=== PATIENT | female | born 1970 | race Caucasian/White ===

== ENCOUNTER 2022-09-22 18:38 | Emergency (ER) | payer OTHER, SELFPAY ==
[2022-09-22 18:56] VITALS: BP 136/78; PULSE 72; RESP 20; TEMP 37.5; O2SAT 99
--- NOTE | 2022-09-22 18:57 | ED.LOWEXIN ---
HPI - Extremity Injury (Lower) General Chief Complaint: Extremity Injury, Lower Stated Complaint: Right Knee Pain Time Seen by Provider: 09/22/22 18:58 Source: patient Mode of arrival: wheelchair Limitations: no limitations History of Present Illness HPI Narrative: [age] year old female presented for complaint of right knee pain. Patient reports she twisted the right knee 2 weeks ago, 5 days ago, and again today. She did see doctor 3 days ago for the original injury, was given a steroid and exercises but has not started the steroid. 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 Today while walking down stairs she stepped on a sharp object and was unable to hold herself up with the right leg, causing her to fall and land on buttocks. Denies hitting head or LOC. Since then she has been unable to bear full weight on the right knee, and reports pain with flexion of the knee. Denies swelling or redness. Applying ice. Denies numbness, tingling or weakness of the extremity. Related Data Home Medications Medication Instructions Recorded Confirmed No Home Medications 09/22/22 09/22/22 Allergies Allergy/AdvReac Type Severity Reaction Status Date / Time No Known Allergies Allergy Verified 09/22/22 18:52 Review of Systems Review of Systems: CONSTITUTIONAL: Denies body aches, fever, chills EYES: Denies visual changes ENT: Denies rhinorrhea, congestion CARDIOVASCULAR: Denies chest pain, palpitations, or edema. RESPIRATORY: Denies cough or dyspnea. GASTROINTESTINAL: Denies abdominal pain, nausea, vomiting, or diarrhea. SKIN: Denies rash, itching, or wounds. MUSCULOSKELETAL: per HPI NEUROLOGIC: Denies headache, numbness, tingling, or weakness. PSYCH: Denies depression or anxiety. All systems reviewed & are unremarkable except as noted in HPI and below [facility] Past Medical History Medical History (Updated 09/23/22 @ 09:23 by Erika Larios, STEPHANIE) No pertinent past medical history Comments At time of signature, I have reviewed and agree with nursing past medical, surgical, social and family history unless otherwise noted. Please see nursing chart for further information. There is no relevant family history pertinent to the presenting complaint Exam Narrative: GENERAL: Well-appearing CHEST: Speaks in full sentences. No respiratory distress. HEART: Regular rate and rhythm. Normal and equal peripheral pulses. EXTREMITIES: Right medial knee pain illicited with external rotation of foot, able to tolerate right knee full extension, endorses pain with flexion. No swelling, erythema, or ecchymosis, No point tenderness. RLE has normal strength and sensation, No open wounds or obvious deformity; alignment normal, pulse palpable and equal bilaterally, skin warm, dry, pink. Capillary refill less than 3 seconds. Utilizing w/c during exam. SKIN: Warm, dry, no rash. NEURO: Alert and oriented x3. PSYCH: Normal mood and affect Course Course Emergency Course: Patient is aware of diagnosis, understands and agrees to treatment plan. Anticipatory guidance given. Patient agrees to follow-up as directed and is aware of reasons to seek care at the emergency department. Portions of this record may have been created with voice recognition software Level of Care: Express Care Visit Vital Signs Vital signs: Vital Signs Temperature 99.5 F 09/22/22 18:56 Pulse Rate 72 09/22/22 18:56 Respiratory Rate 20 09/22/22 18:56 Blood Pressure 136/78 09/22/22 18:56 Pulse Oximetry 99 09/22/22 18:56 Oxygen Delivery Room Air 09/22/22 18:56 Temperature 99.5 F 09/22/22 18:56 Pulse Rate 72 09/22/22 18:56 Respiratory Rate 20 09/22/22 18:56 Blood Pressure 136/78 09/22/22 18:56 Pulse Oximetry 99 09/22/22 18:56 Oxygen Delivery Room Air 09/22/22 18:56 Reviewed Procedures Orthopedic Splinting/Casting right knee: Lower Ex
== END 2022-09-22 19:35 | disposition home or self-care (01) ==
PROVIDERS: Emergency Provider Nurse Practitioner Family
DX: M25.561 Pain in right knee (principal); X50.0XXA Overexertion from strenuous movement or load, initial encounter; W10.8XXA Fall (on) (from) other stairs and steps, initial encounter
CPT/HCPCS: 99213; G0463; L1830

== ENCOUNTER 2023-04-06 08:48 | Emergency (ER) | payer OTHER, SELFPAY ==
[2023-04-06 09:02] VITALS: BP 149/75; PULSE 79; RESP 20; TEMP 37.1; O2SAT 100
--- NOTE | 2023-04-06 09:15 | ED.DENTAL ---
HPI - Dental/Oral General Chief complaint: Dental/Oral Stated complaint: Dental Pain Time Seen by Provider: 04/06/23 09:10 Source: patient Mode of arrival: ambulatory Limitations: no limitations History of Present Illness HPI Narrative: Letha is a 52-year-old female patient who presents to the clinic today with complaints of dental pain. She reports that she had a root canal done on of this week. States that she had increase in swelling and discomfort night that had gradually gotten worse on Saturday. This morning she woke up and she has swelling to her lymph nodes and right lower jaw. She has been taking ibuprofen as needed for the pain. She has not contacted her dentist regarding this issue Related Data Allergies Allergy/AdvReac Type Severity Reaction Status Date / Time No Known Allergies Allergy Verified 04/06/23 09:01 Review of Systems Review of Systems: Pertinent positives per HPI. Patient denies any fever, chills, rash, headache, visual changes, dizziness, cough, runny nose, sore throat, shortness of breath, chest pain, palpitations, nausea, vomiting, diarrhea, constipation, abdominal pain, or any urinary issues. [facility] Past Medical History Medical History No pertinent past medical history Comments At the time of my signature, I reviewed and agree with the nursing past medical, surgical, social, and family history. There is no relevant family history pertinent to the patient complaint. Exam Narrative: General: Well-developed, well nourished, in no apparent distress Head: Normocephalic, atraumatic Eyes: Pupils equally round and reactive to light bilaterally, EOM intact, sclera and conjunctive clear, no discharge, lids normal Ears: TMs intact and clear, ear canals clear, no drainage, grossly hearing normal. Nose: Nares patent, no discharge, no inflammation, no sinus tenderness. Mouth: Oropharynx without lesions or masses, good dentition, MMM.-capped root canal to the right lower premolar with tenderness and swelling noted to the jaw just below the tooth and gum Neck: Supple, trachea midline, no enlargement of anterior or posterior cervical nodes, no thyroid masses or goiter palpable. Cardio: Regular rate and rhythm, s1 and s2 normal, no murmur appreciated. Resp: Clear to auscultation bilaterally anteriorly and posteriorly, no rhonchi, rales, wheezing or rubs Course Course Emergency Course: Portions of this record may have been created with voice recognition software. Level of Care: Express Care Visit Vital Signs Vital signs: Vital Signs Temperature 37.1 C 04/06/23 09:02 Pulse Rate 79 04/06/23 09:02 Respiratory Rate 20 04/06/23 09:02 Blood Pressure 149/75 H 04/06/23 09:02 Pulse Oximetry 100 04/06/23 09:02 Oxygen Delivery Room Air 04/06/23 09:02 Temperature 37.1 C 04/06/23 09:02 Pulse Rate 79 04/06/23 09:02 Respiratory Rate 20 04/06/23 09:02 Blood Pressure 149/75 H 04/06/23 09:02 Pulse Oximetry 100 04/06/23 09:02 Oxygen Delivery Room Air 04/06/23 09:02 Vital signs reviewed MDM - Dental/Oral MDM Narrative Medical decision making narrative: At the time of visit patient is resting comfortably on the exam table. I suspect patient may have a dental infection. Will send in prescription for amoxicillin and have her contact her dentist on Saturday for a follow-up appointment. Supportive measures were discussed with the patient she voiced understanding discharge instructions agrees to treatment plan. Differential Diagnosis Differential diagnosis: Likely gingival abscess, dental caries, toothache, dental abscess, fracture of tooth and aphthous ulcer Discharge Plan Discharge Clinical Impression: Toothache, Dental infection Patient Disposition: Home, Self-Care Condition: Stable Instructions: Antibiotic Form, Toothache (ED) Additional Instructions: Take Tylenol/ibupr
== END 2023-04-06 09:26 | disposition home or self-care (01) ==
PROVIDERS: Emergency Provider Nurse Practitioner Family
DX: K04.7 Periapical abscess without sinus (principal)
CPT/HCPCS: 99213; G0463

== ENCOUNTER 2023-08-14 09:12 | Emergency (ER) | payer OTHER, SELFPAY ==
--- NOTE | 2023-08-14 09:16 | ED.URI ---
HPI - URI/Sore Throat General Chief Complaint: Upper Respiratory Infection Stated Complaint: Cough/Fever Time Seen by Provider: 08/14/23 09:48 Source: patient and RN notes reviewed Mode of arrival: ambulatory Limitations: no limitations History of Present Illness HPI Narrative: 53-year-old female presents concern for one-week history of sinus congestion, sinus pressure, cough. Reports she has been taking laje-ofy-srhzubf medications without relief. She reports she developed fever at the beginning that has resolved. MD elicited complaint: cough and nasal congestion Related Data Allergies Allergy/AdvReac Type Severity Reaction Status Date / Time No Known Allergies Allergy Verified 08/14/23 09:20 Review of Systems Review of Systems: CONSTITUTIONAL: Reports malaise. Denies chills, sweats, or fever. EYES: Denies visual changes, redness, or discharge. ENT: Reports rhinorrhea, congestion, sinus pain CARDIOVASCULAR: Denies chest pain, palpitations, or edema. RESPIRATORY: Reports cough. Denies dyspnea. GASTROINTESTINAL: Denies abdominal pain, nausea, vomiting, diarrhea SKIN: Denies rash or itching. MUSCULOSKELETAL: Reports myalgia. NEUROLOGIC: Denies headache. All systems reviewed & are unremarkable except as noted in HPI and below PMFSH Past Medical History Medical History No pertinent past medical history Comments At time of signature, agree with nursing past medical, surgical, social and family history. There is no relevant family history pertinent to the presenting complaint Exam Narrative: GENERAL: Nontoxic-appearing, well-nourished, and in no acute distress. HEAD: Normocephalic EYES: PERRLA, conjunctivae clear ENT: Nares clear, turbinates edematous and erythematous. Mucous membranes moist. TM pearly concepcion with dull light reflex bilaterally; no tragal tenderness. Oropharynx not erythematous without lesions. Tonsils not enlarged and without exudate, no drooling, no hoarseness, no trismus, uvula midline. NECK: Supple. No lymphadenopathy CHEST: Scattered wheeze, otherwise clear to auscultation, breath sounds equal. No rhonchi, rales, or stridor. No respiratory distress, speaks in full sentences. HEART: Regular rate and rhythm. No murmur heard. SKIN: Warm, dry, no rash. NEURO: Alert and oriented x3. PSYCH: Normal mood and affect Course Course Emergency Course: Patient is aware of diagnosis, understands and agrees to treatment plan. Anticipatory guidance given. Patient agrees to follow-up as directed and is aware of reasons to seek care at the emergency department. Portions of this record may have been created with voice recognition software Level of Care: Express Care Visit Vital Signs Vital signs: Reviewed. MDM - URI/Sore Throat MDM Narrative Medical decision making narrative: Differential diagnosis considered: Cintron virus, strep pharyngitis, allergic rhinitis, upper respiratory tract infection, sinusitis, rhinosinusitis, nasopharyngitis. viral pharyngitis, otitis media, otitis externa, pneumonia, bronchitis, viral cough syndrome, viral syndrome, and influenza. Exam findings show no acute concerns or changes; patient is non-toxic appearing and is in no distress. Patient is appropriate for outpatient treatment and follow-up. Lab Data Attestation: I reviewed the patient's lab results. Critical Care Time Critical Care Time Critical Care Time: No Discharge Plan Discharge Clinical Impression: Sinobronchitis Patient Disposition: Home, Self-Care Condition: Stable Instructions: Antibiotic Form, How to Use a Metered-Dose Inhaler (ED) Additional Instructions: Take medications as directed Nonprescription pain medications, such as acetaminophen (eg, Tylenol) or ibuprofen (eg, Motrin, Advil), are recommended for pain. Flushing the nose and sinuses with a saline solution several times per day has been proven to decrease pain associate
[2023-08-14 09:28] VITALS: BP 121/80; PULSE 90; RESP 16; TEMP 36.7; O2SAT 100
== END 2023-08-14 10:05 | disposition home or self-care (01) ==
PROVIDERS: Emergency Provider Nurse Practitioner
DX: J32.9 Chronic sinusitis, unspecified (principal); J40 Bronchitis, not specified as acute or chronic
CPT/HCPCS: 87081; 87880; 99213; G0463

== ENCOUNTER 2024-01-27 15:49 | Emergency (ER) | payer OTHER, SELFPAY ==
--- NOTE | 2024-01-27 16:25 | ED.EAR ---
HPI - Ear Problem General Chief complaint: Ear Stated complaint: stuffy ears , ears ringing Time Seen by Provider: 01/27/24 16:35 Source: patient and RN notes reviewed Mode of arrival: ambulatory Limitations: no limitations History of Present Illness HPI Narrative: 53-year-old female presents with concern for stuffy ears and ringing ears for 1 day. She denies drainage from the ears, fever, nasal congestion, rhinorrhea, sore throat. MD Complaint: ear pain Related Data Allergies Allergy/AdvReac Type Severity Reaction Status Date / Time No Known Allergies Allergy Verified 01/27/24 16:17 Review of Systems Review of Systems: CONSTITUTIONAL: Denies malaise, chills, sweats, or fever. EYES: Denies visual changes, redness, or discharge. ENT: Denies rhinorrhea, congestion, sinus pain, and sore throat. Reports bilateral ear fullness and ringing CARDIOVASCULAR: Denies chest pain, palpitations, or edema. RESPIRATORY: Denies cough. Denies dyspnea. GASTROINTESTINAL: Denies abdominal pain, nausea, vomiting, diarrhea SKIN: Denies rash or itching. MUSCULOSKELETAL: Denies myalgia. NEUROLOGIC: Denies headache. All systems reviewed & are unremarkable except as noted in HPI and below PMFSH Past Medical History Medical History No pertinent past medical history Comments At time of signature, agree with nursing past medical, surgical, social and family history. There is no relevant family history pertinent to the presenting complaint Exam Narrative: GENERAL: Well-appearing, well-nourished, and in no acute distress. HEAD: Normocephalic EYES: PERRLA, conjunctivae clear ENT: Nares clear. Mucous membranes moist. TM pearly concepcion with dull light reflex bilaterally; no tragal tenderness. Oropharynx not erythematous without lesions. Tonsils not enlarged and without exudate, no drooling, no hoarseness, no trismus, uvula midline. NECK: Supple. No lymphadenopathy CHEST: Clear to auscultation, breath sounds equal. No wheezing, rhonchi, rales, or stridor. No respiratory distress, speaks in full sentences. HEART: Regular rate and rhythm. No murmur heard. SKIN: Warm, dry, no rash. NEURO: Alert and oriented x3. PSYCH: Normal mood and affect Course Course Emergency Course: Patient is aware of diagnosis, understands and agrees to treatment plan. Anticipatory guidance given. Patient agrees to follow-up as directed and is aware of reasons to seek care at the emergency department. Portions of this record may have been created with voice recognition software Level of Care: [facility] Visit Vital Signs Vital signs: Reviewed. Medical Decision Making MDM Narrative Medical decision making narrative: I evaluated this in the [facility]. History is obtained from patient who is an independent historian and physical exam was performed.? Available medical records were reviewed. ? Exam findings and relevant testing show no acute concerns or changes; patient is non-toxic appearing and is in no distress. Differential diagnosis considered: Cintron virus, strep pharyngitis, allergic rhinitis, upper respiratory tract infection, sinusitis, rhinosinusitis, nasopharyngitis. viral pharyngitis, otitis media, otitis externa, otitis effusion, cerumen impaction, foreign body. Exam findings show no acute concerns or changes; patient is non-toxic appearing and is in no distress. Patient is appropriate for outpatient treatment and follow-up. ? Differential diagnosis and treatment plan were discussed with the patient. Patient agrees with discussion and after shared medical decision making agrees with plan of care. All questions were answered to the patient's satisfaction. Patient is appropriate for outpatient treatment and follow-up. Critical Care Time Critical Care Time Critical Care Time: No Discharge Plan Discharge Clinical Impression: Fluid level behind tympanic membrane of both ears Laurence
[2024-01-27 16:30] VITALS: BP 119/60; PULSE 76; RESP 18; TEMP 36.6; O2SAT 100
== END 2024-01-27 16:45 | disposition home or self-care (01) ==
PROVIDERS: Emergency Provider Nurse Practitioner; PCP Family Medicine
DX: H73.893 Other specified disorders of tympanic membrane, bilateral (principal)
CPT/HCPCS: 99213; G0463

== ENCOUNTER 2024-05-14 15:50 | Outpatient (CLI) | payer OTHER, SELFPAY ==
--- NOTE | ~2024-05-14 | MR_ITS ---
EXAMINATION: MR brain IAC wo/w con DATE: 05/14/2024 16:44 INDICATION: Bilateral tinnitus TECHNIQUE: Magnetic resonance imaging (MRI) of the brain and brainstem was performed without and with 18 mL Multihance intravenous contrast. Sequences included sagittal and axial T1-weighted FSE, axial diffusion-weighted FS EPI, axial T2*-weighted GRE, axial T2-weighted FLAIR Propeller, axial T2-weight ed Propeller, small oatob-aw-bnzm coronal FIESTA, small ajntb-jf-kcwz coronal T1-weighted FSE, and sm all ncvap-bn-avzy axial T1-weighted SPGR. Postcontrast sequences included axial T1-weighted FSE, smal l gzxol-nd-hfmx coronal T1-weighted FSE, and small rrmvm-xo-skkq axial T1-weighted SPGR. Apparent dif fusion coefficient (ADC) maps were created. COMPARISON: None. FINDINGS: There are no areas of restricted diffusion to suggest acute infarction. No intracranial hemorrhage or abnormal intracranial mass lesion. There are no intraparenchymal signal abnormalities seen on the ot her pulse sequences. The ventricles are symmetric and normal in size. There are no abnormal extra-axi al fluid collections. Normal seventh/eighth cranial nerve complexes. No cerebellopontine angles mass es. No evidence of mastoid or middle ear fluid. Flow voids are seen in the cerebral arteries on the T2-weighted sequences consistent with their expected patency. There is mild mucosal thickening the bi lateral ethmoid sinuses. Visualized orbits and soft tissues are unremarkable. There are no areas of a bnormal enhancement on the post contrast images. IMPRESSION: 1. Normal MRI of the brain and internal auditory canals. Reviewed, dictated and finalized at location A.
== END 2024-05-14 15:51 | disposition home or self-care (01) ==
LOC: MICIMG 15:52
DX: H93.13 Tinnitus, bilateral (principal)
CPT/HCPCS: 70553; A9577

== ENCOUNTER 2024-06-10 06:33 | Day surgery (SDC) | payer OTHER, SELFPAY ==
[2024-04-29 10:28] VITALS: BMI 37.7
[2024-05-21 14:19] VITALS: BMI 35.9
--- NOTE | 2024-06-10 06:51 | P.PNAN_ITS ---
Anes - Initial Pre Proc Eval Procedure: Operation Date: 06/10/24 08:45 Proposed Procedures p Screening Colonoscopy - Axel Baker MD Date/Time: 06/10/24 06:51 Surgeon: Axel Baker MD Pre Op Diagnosis: Neoplasm Screening Patient Data Age: 54 Gender: F Height: 1.57 m Weight: 89 kg Allergies Allergy/AdvReac Type Severity Reaction Status Date / Time No Known Allergies Allergy Verified 06/10/24 07:57 Home Medications Medication Instructions Recorded Confirmed Type Claritin 1 tab-cap PO DAILY 05/21/24 06/10/24 History metformin 500 mg tablet 500 mg PO DAILY 05/21/24 06/10/24 History Patient hx anesthesia problems: none Family hx anesthesia problems: none Results Review: All pre-operative results and documents have been reviewed as part of the pre- operative evaluation. [facility] Past Medical History Medical History (Updated 06/10/24 @ 06:51 by Aleksey Riggs DO) Beta thalassemia Diabetes type 2, controlled Social History Social History Smoking status: Never smoker Alcohol intake: current Drinks per week: 2 Substance use: never Substance use type: does not use Living arrangements: alone Spiritual care concerns: No Anes - Eval Final PreProcedure Day of Procedure 06/10/24 06:51 Patient weight: obese Heart: regular rate and rhythm Lungs: clear to auscultation Airway: Mallampati scale class III Neurological: alert and oriented Last oral intake: >/= 8 hours ASA classification: III Emergent: no Anesthetic plan: proceed Anesthesia type and monitoring: general GIVS and standard monitoring Results Review: All pre-operative results and documents have been reviewed as part of the pre- operative evaluation. Informed Consent: The patient's anesthetic plan and its attendant risks and benefits were discussed with the patient/family/POA. Questions were solicited and answers provided to the satisfaction of the patient/family/POA.
[2024-06-10] MEDS: LACTATED RINGERS 1,000 ML 150 ML IV CONT (07:42)
[2024-06-10 07:57] VITALS: BP 119/85; PULSE 88; RESP 18; TEMP 36.7; O2SAT 97
[2024-06-10 08:00] LABS: Glucose Point of Care 112 mg/dl (65-105)
--- NOTE | 2024-06-10 08:29 | P.HP_ITS ---
History of Present Illness History of Present Illness Consent: Risks, benefits, and alternatives have been discussed and questions answered. Patient agrees to proceed with procedure. Chief complaint: Neoplasm Screening Narrative: Marcela Quevedo is a 54 year old female presents for screening colonoscopy. Patient current weight appetite and bowel movements are normal. Patient denies abdominal pain. Patient has had no bleeding. Family history is noncontrib utory. Review of Systems Review of Systems: All systems reviewed & are unremarkable except as noted in HPI and below PMFSH Past Medical History Medical History (Updated 06/10/24 @ 08:30 by Axel Baker MD) Beta thalassemia Diabetes type 2, controlled Social History Social History Smoking status: Never smoker Alcohol intake: current Drinks per week: 2 Substance use: never Substance use type: does not use Living arrangements: alone Spiritual care concerns: No Meds Home Medications and Allergies Home Medications Medication Instructions Recorded Confirmed Type Claritin 1 tab-cap PO DAILY 05/21/24 06/10/24 History metformin 500 mg tablet 500 mg PO DAILY 05/21/24 06/10/24 History Allergies Allergy/AdvReac Type Severity Reaction Status Date / Time No Known Allergies Allergy Verified 06/10/24 07:57 Vital Signs Vital Signs - 24 hr 06/10/24 07:57 Temperature 98.1 F Pulse Rate 88 Respiratory Rate 18 Blood Pressure 119/85 Pulse Oximetry 97 Oxygen Delivery Room Air Exam Narrative: Physical exam reveals patient to be alert. Vital signs stable. HEENT exam is unremarkable. Patient is anicteric. Lungs are clear to auscultation and to percussion. Heart is without murmur or extra sounds. Abdomen bowel sounds are present soft nontender with no organomegaly. Digital external rectal exam is normal. Assessment and Plan Assessment and plan (1) Screen for colon cancer: Code(s): Z12.11 - Encounter for screening for malignant neoplasm of colon Status: Acute Assessment and Plan: Patient presents today for neoplasia screening colonoscopy. Further recommendations may be given after endoscopy.
[2024-06-10 09:04] VITALS: BP 101/63; PULSE 74; RESP 16; O2SAT 98
[2024-06-10 09:14] VITALS: BP 103/65; PULSE 68; RESP 17; O2SAT 98
[2024-06-10 09:24] VITALS: BP 103/66; PULSE 76; RESP 17; O2SAT 99
--- NOTE | 2024-06-10 12:01 | WPDANESPN ---
Anes - Prog Note Post-Op Date/Time: 06/10/24 12:01 Cardiovascular status: normal Respiratory status: normal Airway patency: baseline Mental status: baseline Post-Op hydration status: normal Vital Signs: Last Vital Signs Temp 36.7 C 06/10/24 07:57 Pulse 76 06/10/24 09:24 Resp 17 06/10/24 09:24 BP 103/66 06/10/24 09:24 Pulse Ox 99 06/10/24 09:24 O2 Del Method Room Air 06/10/24 09:24 Pain Score (VAS): 0 I/O: Intake & Output 06/09/24 06/10/24 06/10/24 23:59 07:59 15:59 Intake Total 700 Balance 700 06/10/24 07:55 POC Capillary Glucose 112 H Post-procedural complaints: none Patient Feedback: Patient satisfied with anesthetic care. Other Findings: Patient vital signs back to baseline. Patient denies nausea and vomiting. Patient's pain under control. Patient OK for discharge.
== END 2024-06-10 09:33 | disposition home or self-care (01) ==
PROVIDERS: Visit Provider Internal Medicine Gastroenterology
PROC: 0DJD8ZZ Inspection of Lower Intestinal Tract, Via Natural or Artificial Opening Endoscopic (ICD-10-PCS; CPT 45378; principal; 2024-06-10 08:45)
DX: Z12.11 Encounter for screening for malignant neoplasm of colon (principal); D12.2 Benign neoplasm of ascending colon; K64.8 Other hemorrhoids
CPT/HCPCS: 45385

== ENCOUNTER 2024-06-10 07:00 | Outpatient (NON) | payer OTHER, SELFPAY | END 2024-06-10 07:01 | disposition home or self-care (01) | LOC: ANHLAB 06-11 07:36 | PROVIDERS: Visit Provider Internal Medicine Gastroenterology | DX: Z12.11 Encounter for screening for malignant neoplasm of colon (principal); D12.2 Benign neoplasm of ascending colon | CPT/HCPCS: 88305 ==

== ENCOUNTER 2024-10-01 15:50 | Outpatient (CLI) | payer OTHER, SELFPAY ==
--- NOTE | ~2024-10-01 | MM_ITS ---
EXAMINATION: MM screening kevin BI w lisette HISTORY: Screening TECHNIQUE: Craniocaudal and mediolateral oblique 3-D tomosynthesis images were obtained and synthetic 2-D images were generated. CAD analysis was submitted and interpreted. COMPARISON: No prior mammogram is available for comparison at this institution. BREAST PARENCHYMAL COMPOSITION: Not Dense. The breasts are almost entirely fatty. FINDINGS: There is no evidence of suspicious mass, calcification, or architectural distortion to sugg est malignancy in either breast. There has been no suspicious interval change. IMPRESSION: 1. No mammographic evidence of malignancy. 2. Recommend routine screening mammography in one year. BI-RADS Category 1: Negative Reviewed, dictated and finalized at location B. [employer]
== END 2024-10-01 15:51 | disposition home or self-care (01) ==
PROVIDERS: Visit Provider Student in an Organized Health Care Education/Training Program
DX: Z12.31 Encounter for screening mammogram for malignant neoplasm of breast (principal)
CPT/HCPCS: 77063; 77067